=== PATIENT | female | born 1990 | race Two or more races ===

== ENCOUNTER 2019-01-05 16:16 | Outpatient (CLI) | payer OTHER ==
[~2019-01-05 16:16] MED LIST: ANUSOL-HC30 G2 RC
== END 2019-01-05 16:33 | disposition home or self-care (01) ==
LOC: LAB 16:16
DX: E78.2 Mixed hyperlipidemia (principal); R42 Dizziness and giddiness; Z00.00 Encounter for general adult medical examination without abnormal findings

== ENCOUNTER → 2019-12-19 07:05 | Outpatient (CLI) | payer OTHER | END | disposition home or self-care (01) | LOC: LAB 07:05 | DX: E78.49 Other hyperlipidemia (principal); Z00.00 Encounter for general adult medical examination without abnormal findings; E55.9 Vitamin D deficiency, unspecified; R42 Dizziness and giddiness; Z11.3 Encounter for screening for infections with a predominantly sexual mode of transmission ==

== ENCOUNTER 2021-07-05 06:44 | Emergency (ER) | payer OTHER ==
[~2021-07-05] VITALS: Ht 170.2 cm; Wt 78.5 kg
[2021-07-05] MEDS ORDERED: ACETAMINOPHEN650 M2 PO (07:39)
== END 2021-07-05 07:50 | disposition home or self-care (01) ==
LOC: ER 06:44
DX: R51.9 Headache, unspecified (principal)

== ENCOUNTER 2021-09-14 08:00 | Outpatient (CLI) | payer OTHER ==
[~2021-09-14 08:00] MED LIST changes: +ACETAMINOPHEN650 M2 PO
== END 2021-09-14 08:30 | disposition home or self-care (01) ==
LOC: PPH VACUNA 08:00
PROVIDERS: ATTEND Emergency Medicine Pediatric Emergency Medicine
DX: Z23 Encounter for immunization (principal)
CPT/HCPCS: G0008

== ENCOUNTER 2021-11-25 08:00 | Outpatient (CLI) | payer OTHER | END 2021-11-25 08:30 | disposition home or self-care (01) | LOC: PPH VACUNA 08:00 | PROVIDERS: ATTEND Emergency Medicine Pediatric Emergency Medicine | DX: Z23 Encounter for immunization (principal) ==

== ENCOUNTER 2023-04-04 16:19 | Outpatient (CLI) | payer OTHER | END 2023-04-04 16:27 | disposition home or self-care (01) | LOC: LAB 16:19 | PROVIDERS: ATTEND Internal Medicine | DX: E55.9 Vitamin D deficiency, unspecified (principal); Z13.1 Encounter for screening for diabetes mellitus; Z13.220 Encounter for screening for lipoid disorders; Z13.29 Encounter for screening for other suspected endocrine disorder ==

== ENCOUNTER 2023-06-16 14:13 | Outpatient (CLI) | payer OTHER | END 2023-06-16 14:55 | disposition home or self-care (01) | LOC: MRI 14:13 | PROVIDERS: ATTEND Internal Medicine | DX: M25.561 Pain in right knee (principal) | CPT/HCPCS: 73721 ==

== ENCOUNTER 2023-11-06 17:50 | Emergency (ER) | payer OTHER ==
[~2023-11-06] VITALS: Ht 170.2 cm; Wt 77.1 kg
[2023-11-06 19:56] LABS: HEMATOCRIT 36.1 % (36.0-45.00); MEAN CORPUSCULAR HEMOGLOBIN 26.6 pg (27.00-32.0); MEAN CORPUSCULAR HGB CONC 33.3 g/dl (32.0-36.0); PLATELET COUNT 332 K/uL (150-450); RED BLOOD COUNT 4.51 M/uL (4.00-6.00); RED CELL DISTRIBUTION WIDTH 13.7 % (11.5-14.5)
[2023-11-06 20:41] LABS: CREATININE SERUM 0.71 mg/dL (0.55-1.02); GFR 96.01; POTASSIUM 3.85 mEq/L (3.5-5.1)
== END 2023-11-07 00:09 | disposition home or self-care (01) ==
LOC: ER 17:50
PROVIDERS: Emergency Medicine
DX: S82.891A Other fracture of right lower leg, initial encounter for closed fracture (principal); W19.XXXA Unspecified fall, initial encounter; Y93.55 Activity, bike riding; Y92.89 Other specified places as the place of occurrence of the external cause; Y99.8 Other external cause status

== ENCOUNTER → 2023-11-09 17:22 | Outpatient (CLI) | payer OTHER | END | disposition home or self-care (01) | LOC: RAD 14:00 → LAB 17:22 | PROVIDERS: ATTEND Orthopaedic Surgery | DX: I10 Essential (primary) hypertension (principal); Z76.89 Persons encountering health services in other specified circumstances; B95.62 Methicillin resistant Staphylococcus aureus infection as the cause of diseases classified elsewhere ==

== ENCOUNTER 2023-11-16 07:22 | Outpatient (CLI) | payer OTHER ==
[2023-11-16 07:48] LABS: HEMATOCRIT 34.9 % (36.0-45.00); HEMOGLOBIN 11.7 g/dL (12.0-15.00); MEAN CORPUSCULAR HEMOGLOBIN 26.4 pg (27.00-32.0); MEAN CORPUSCULAR HGB CONC 33.5 g/dl (32.0-36.0); PLATELET COUNT 340 K/uL (150-450); RED BLOOD COUNT 4.42 M/uL (4.00-6.00); RED CELL DISTRIBUTION WIDTH 13.1 % (11.5-14.5)
[2023-11-16 08:03] LABS: COL EPI 73 SECONDS (82-175)
[2023-11-16 08:40] LABS: ALBUMIN 3.8 gm/dL (3.4-5.0); BILIRUBIN TOTAL 0.59 mg/dL (0.3-1.2); CHOL HDL RATIO 5.1 (0-5.0); CREATININE SERUM 0.64 mg/dL (0.55-1.02); FREE TRIODOTIRONINE 3.25 pg/ml (2.18-3.98); GFR 108.23; GLOBULINA 3.8 G/DL (2.4-3.5); POTASSIUM 3.96 mEq/L (3.5-5.1); T4 FREE 1.16 NG/ML (0.76-1.46); TOTAL PROTEIN 7.6 gm/dL (6.4-8.2); TSH 3.55 uIU/mL (0.358-3.74)
== END 2023-11-16 10:54 | disposition home or self-care (01) ==
LOC: LAB 07:22
PROVIDERS: ATTEND Orthopaedic Surgery
DX: Z13.1 Encounter for screening for diabetes mellitus (principal); Z13.29 Encounter for screening for other suspected endocrine disorder; Z13.220 Encounter for screening for lipoid disorders; R73.9 Hyperglycemia, unspecified; E55.9 Vitamin D deficiency, unspecified; D68.8 Other specified coagulation defects; Z20.822 Contact with and (suspected) exposure to COVID-19; U07.1 COVID-19

== ENCOUNTER 2023-11-21 05:58 | Day surgery (SDC) | payer OTHER | END 2023-11-21 17:45 | disposition home or self-care (01) | LOC: CIR.AMB 05:58 | PROVIDERS: ATTEND Orthopaedic Surgery | DX: S82.852A Displaced trimalleolar fracture of left lower leg, initial encounter for closed fracture (principal); Z20.822 Contact with and (suspected) exposure to COVID-19 | CPT/HCPCS: 27823; L8699 ==

== ENCOUNTER 2023-12-15 10:21 | Outpatient (CLI) | payer OTHER | END 2023-12-15 10:26 | disposition home or self-care (01) | LOC: RAD 10:21 | PROVIDERS: ATTEND Orthopaedic Surgery | DX: S82.852D Displaced trimalleolar fracture of left lower leg, subsequent encounter for closed fracture with routine healing (principal) ==

== ENCOUNTER 2024-01-12 08:30 | Outpatient (CLI) | payer OTHER | END 2024-01-12 08:34 | disposition home or self-care (01) | LOC: RAD 08:30 | PROVIDERS: ATTEND Orthopaedic Surgery | DX: S82.852D Displaced trimalleolar fracture of left lower leg, subsequent encounter for closed fracture with routine healing (principal) ==

== ENCOUNTER 2025-08-16 06:16 | Outpatient (CLI) | payer OTHER ==
[2025-08-16 07:43] LABS: URINE APPEARANCE Clear; URINE BILIRRUBIN Negative (NEGATIVE); URINE BLOOD Negative; URINE COLOR Yellow; URINE GLUCOSE Negative (NEGATIVE); URINE KETONE Negative (NEGATIVE); URINE LEUKOCYTE Negative; URINE NITRATE Negative; URINE PROTEIN Negative (NEGATIVE); URINE UROBILINOGEN 0.2 E.U./dl
[2025-08-16 07:46] LABS: URINE BACTERIA 43.1 uL (0.0-1933); URINE EPITHELIAL CELLS 7.5 uL (0.0-38.8); URINE RBC 26.8 uL (0.0-20.8)
[2025-08-16 07:50] LABS: URINE CAST 0.00 uL (0.0-1.40); URINE WBC 1.5 uL (0.0-23.2)
[2025-08-16 08:05] LABS: BASO % 0.3 % (0.1-1.2); EOS # 0.28 (0.04-0.54); EOS % 3.6 % (0.7-7.0); LYMPH # 2.13 (1.18-3.74); LYMPH % 27.7 % (19.3-53.1); MEAN PLATELET VOLUME 10.50 fl (9.4-12.4); MONO # 0.51 (0.24-0.82); MONO % 6.6 % (4.7-12.5); NEUT # 4.75 (1.56-6.13); NEUT % 61.7 % (34.0-71.1); RED CELL DISTRIBUTION WIDTH 13.1 % (11.6-14.4)
[2025-08-16 09:12] LABS: BILIRUBIN TOTAL 0.3 mg/dL (0.3-1.2); CHOL HDL RATIO 4.5 (0-5.0); GLOBULINA 3.5 G/DL (2.4-3.5); GLUCOSE FASTING 104.0 mg/dL (65-100); HDL 40.0 mg/dl (40-60); LDL 123.0 mg/dl (0-130); OSMOLALITY SERUM 282.0 MOSM/KG (275-295); VLDL 18.0 (0-39)
[2025-08-16 09:13] LABS: ALT/SGPT 24.0 U/L (12-78); AST/SGOT 10.0 U/L (15-37); BUN CREA RATIO 20.0 (7.0-25.0); CREATININE SERUM 0.71 mg/dL (0.55-1.02); GFR 94.8
[2025-08-16 09:17] LABS: T4 TOTAL 7.69 UG/DL (4.8-13.9); TSH 2.37 uIU/mL (0.358-3.74)
== END 2025-08-16 06:28 | disposition home or self-care (01) ==
LOC: LAB 06:16
PROVIDERS: ATTEND Internal Medicine
DX: R00.0 Tachycardia, unspecified (principal); E04.1 Nontoxic single thyroid nodule; Z13.29 Encounter for screening for other suspected endocrine disorder; E78.9 Disorder of lipoprotein metabolism, unspecified; R10.9 Unspecified abdominal pain; Z68.25 Body mass index [BMI] 25.0-25.9, adult

== ENCOUNTER 2025-08-19 07:02 | Outpatient (CLI) | payer OTHER | END 2025-08-19 07:24 | disposition home or self-care (01) | LOC: LAB 07:02 | PROVIDERS: ATTEND Internal Medicine | DX: E04.1 Nontoxic single thyroid nodule (principal); Z13.29 Encounter for screening for other suspected endocrine disorder; R00.0 Tachycardia, unspecified; Z68.25 Body mass index [BMI] 25.0-25.9, adult; R10.9 Unspecified abdominal pain ==

== ENCOUNTER 2025-09-03 15:15 | Outpatient (CLI) | payer OTHER ==
[2025-09-03 15:34] LABS: BASO % 0.3 % (0.1-1.2); EOS # 0.14 (0.04-0.54); EOS % 1.3 % (0.7-7.0); LYMPH # 2.65 (1.18-3.74); LYMPH % 24.0 % (19.3-53.1); MEAN PLATELET VOLUME 9.90 fl (9.4-12.4); MONO # 0.74 (0.24-0.82); MONO % 6.7 % (4.7-12.5); NEUT # 7.46 (1.56-6.13); NEUT % 67.4 % (34.0-71.1); RED CELL DISTRIBUTION WIDTH 12.9 % (11.6-14.4)
== END 2025-09-03 15:18 | disposition home or self-care (01) ==
LOC: LAB 15:15
PROVIDERS: ATTEND Internal Medicine
DX: R00.2 Palpitations (principal); N20.0 Calculus of kidney

== ENCOUNTER 2025-09-04 07:14 | Outpatient (CLI) | payer OTHER | END 2025-09-04 07:16 | disposition home or self-care (01) | LOC: MRI 07:14 | PROVIDERS: ATTEND Internal Medicine | DX: R10.9 Unspecified abdominal pain (principal) | CPT/HCPCS: 74182 ==